=== PATIENT | female | born 1995 | race Caucasian/White ===

== ENCOUNTER 2017-10-31 22:28 | Emergency (ER) | payer SELFPAY ==
[2017-10-31 23:01] LABS: BASOPHILS 0.2 % (0-2); EOSINOPHILS 2.9 % (0-7); HEMATOCRIT 41.6 % (36.0-48.0); HEMOGLOBIN 13.3 g/dL (12-16); IMMATURE GRANULOCYTES 0.4 % (0-5); LYMPHOCYTES 27.4 % (15-50); MCH 27.2 pg (26.0-34.0); MCV 85.1 fL (80.0-100.0); MEAN PLATELET VOLUME 11.8 fL (7.4-10.4); NEUTROPHILS 62.1 % (40-80); PLATELET COUNT 279 10x3/uL (130-400); RBC 4.89 10x6/uL (4.00-5.40); RDW 13.5 % (11.5-14.5); WBC 8.9 10x3/uL (4.8-10.8)
[2017-10-31 23:10] LABS: APPEARANCE CLEAR (CLEAR); BILIRUBIN NEGATIVE (NEGATIVE); COLOR YELLOW (YELLOW); GLUCOSE NEGATIVE (NEGATIVE); KETONE NEGATIVE (NEGATIVE); NITRITE NEGATIVE (NEGATIVE); PROTEIN NEGATIVE (NEGATIVE); SPECIFIC GRAVITY 1.015 (1.005-1.020); UROBILINOGEN NORMAL (NORMAL)
[2017-10-31 23:11] LABS: HCG URINE NEGATIVE (NEGATIVE)
[2017-10-31 23:17] LABS: ALBUMIN 3.8 g/dL (3.4-5.0); ALKALINE PHOSPHATASE 95 U/L (46-116); ALT (SGPT) 30 U/L (10-68); AMYLASE - SERUM 43 U/L (25-115); BILIRUBIN - TOTAL 0.27 mg/dL (0.2-1.3); CALC OSMOLALITY 273 mosm/kg (275-300); CALCIUM 9.4 mg/dL (8.5-10.1); CARBON DIOXIDE 26.1 mmol/L (21.0-32.0); CHLORIDE - SERUM 102 mmol/L (98-107); CREATININE - SERUM 0.6 mg/dL (0.6-1.3); GLUCOSE 103 mg/dL (74-106); LIPASE 152 U/L (73-393); POTASSIUM - SERUM 4.1 mmol/L (3.5-5.1); PROTEIN - SERUM 7.6 g/dL (6.4-8.2); SODIUM 137 mmol/L (136-145); UREA NITROGEN 13 mg/dL (7-18); eGFR NON AFRICAN AMERICAN > 90 mL/min (90-120)
== END 2017-11-01 00:09 | disposition home or self-care (01) ==
LOC: D.ER 22:28
PROVIDERS: Family Medicine
DX: K29.00 Acute gastritis without bleeding (principal)

== ENCOUNTER 2017-11-13 16:21 | Emergency (ER) | payer MEDICAID ==
[2017-11-13 16:52] LABS: UDS - AMPHET NEGATIVE QUAL (NEGATIVE); UDS - BARB NEGATIVE QUAL (NEGATIVE); UDS - BENZO NEGATIVE QUAL (NEGATIVE); UDS - COCAINE NEGATIVE QUAL (NEGATIVE); UDS - OPIATE NEGATIVE QUAL (NEGATIVE); UDS - PCP NEGATIVE QUAL (NEGATIVE); UDS - THC NEGATIVE QUAL (NEGATIVE)
[2017-11-13 16:56] LABS: BASOPHILS 0.4 % (0-2); EOSINOPHILS 1.7 % (0-7); HEMATOCRIT 41.5 % (36.0-48.0); HEMOGLOBIN 13.4 g/dL (12-16); IMMATURE GRANULOCYTES 0.4 % (0-5); LYMPHOCYTES 22.2 % (15-50); MCH 27.3 pg (26.0-34.0); MCHC 32.3 g/dL (31.0-37.0); MCV 84.5 fL (80.0-100.0); MEAN PLATELET VOLUME 11.8 fL (7.4-10.4); MONOCYTES 9.8 % (2-11); NEUTROPHILS 65.5 % (40-80); PLATELET COUNT 293 10x3/uL (130-400); RBC 4.91 10x6/uL (4.00-5.40); RDW 13.5 % (11.5-14.5); WBC 8.2 10x3/uL (4.8-10.8)
[2017-11-13 17:18] LABS: ALBUMIN 4.2 g/dL (3.4-5.0); ALKALINE PHOSPHATASE 82 U/L (46-116); ALT (SGPT) 24 U/L (10-68); BILIRUBIN - TOTAL 0.33 mg/dL (0.2-1.3); CALC OSMOLALITY 277 mosm/kg (275-300); CALCIUM 9.3 mg/dL (8.5-10.1); CARBON DIOXIDE 23.6 mmol/L (21.0-32.0); CHLORIDE - SERUM 104 mmol/L (98-107); CREATININE - SERUM 0.7 mg/dL (0.6-1.3); GLUCOSE 93 mg/dL (74-106); POTASSIUM - SERUM 3.9 mmol/L (3.5-5.1); PROTEIN - SERUM 7.4 g/dL (6.4-8.2); SODIUM 139 mmol/L (136-145); UREA NITROGEN 13 mg/dL (7-18); eGFR NON AFRICAN AMERICAN > 90 mL/min (90-120)
[2017-11-13 17:33] LABS: APPEARANCE HAZY (CLEAR); BILIRUBIN NEGATIVE (NEGATIVE); COLOR YELLOW (YELLOW); GLUCOSE NEGATIVE (NEGATIVE); KETONE MODERATE mg/dL (NEGATIVE); NITRITE NEGATIVE (NEGATIVE); PROTEIN NEGATIVE (NEGATIVE); SPECIFIC GRAVITY 1.025 (1.005-1.020); UROBILINOGEN NORMAL (NORMAL)
[2017-11-13 17:36] LABS: EPITHELIAL CELLS 0-5 /hpf (0-5); RED CELLS - URINE >50 /hpf (0-5)
[2017-11-13 17:37] LABS: BACTERIA MODERATE /hpf (NONE SEEN)
== END 2017-11-13 21:34 | disposition home or self-care (01) ==
LOC: D.ER 16:21
PROVIDERS: Family Medicine
DX: F33.9 Major depressive disorder, recurrent, unspecified (principal); N39.0 Urinary tract infection, site not specified; I10 Essential (primary) hypertension

== ENCOUNTER 2017-12-04 19:16 | Emergency (ER) | payer MEDICAID ==
[2017-12-04 19:37] LABS: APPEARANCE CLEAR (CLEAR); BILIRUBIN NEGATIVE (NEGATIVE); COLOR YELLOW (YELLOW); GLUCOSE NEGATIVE (NEGATIVE); KETONE SMALL mg/dL (NEGATIVE); NITRITE NEGATIVE (NEGATIVE); PROTEIN NEGATIVE (NEGATIVE); UROBILINOGEN NORMAL (NORMAL)
[2017-12-04 19:38] LABS: WHITE CELLS - URINE 0-5 /hpf (0-5)
[2017-12-04 19:39] LABS: BACTERIA FEW /hpf (NONE SEEN); EPITHELIAL CELLS 0-5 /hpf (0-5); HCG URINE NEGATIVE (NEGATIVE); RED CELLS - URINE 0-5 /hpf (0-5)
[2017-12-04 19:45] LABS: UDS - AMPHET NEGATIVE QUAL (NEGATIVE); UDS - BARB NEGATIVE QUAL (NEGATIVE); UDS - BENZO NEGATIVE QUAL (NEGATIVE); UDS - COCAINE NEGATIVE QUAL (NEGATIVE); UDS - OPIATE NEGATIVE QUAL (NEGATIVE); UDS - PCP NEGATIVE QUAL (NEGATIVE); UDS - THC NEGATIVE QUAL (NEGATIVE)
[2017-12-04 20:12] LABS: BASOPHILS 0.5 % (0-2); EOSINOPHILS 2.3 % (0-7); HEMATOCRIT 41.9 % (36.0-48.0); HEMOGLOBIN 13.4 g/dL (12-16); IMMATURE GRANULOCYTES 0.8 % (0-5); LYMPHOCYTES 28.9 % (15-50); MCH 27.5 pg (26.0-34.0); MCV 85.9 fL (80.0-100.0); MEAN PLATELET VOLUME 11.9 fL (7.4-10.4); MONOCYTES 15.2 % (2-11); NEUTROPHILS 52.3 % (40-80); RBC 4.88 10x6/uL (4.00-5.40); RDW 13.5 % (11.5-14.5); WBC 6.1 10x3/uL (4.8-10.8)
[2017-12-04 20:15] LABS: PLATELET COUNT 213 10x3/uL (130-400)
[2017-12-04 20:42] LABS: ALKALINE PHOSPHATASE 60 U/L (46-116); ALT (SGPT) 18 U/L (10-68); CARBON DIOXIDE 22.9 mmol/L (21.0-32.0); CHLORIDE - SERUM 106 mmol/L (98-107); POTASSIUM - SERUM 3.6 mmol/L (3.5-5.1); PROTEIN - SERUM 6.9 g/dL (6.4-8.2); SODIUM 141 mmol/L (136-145)
[2017-12-04 21:03] LABS: ALBUMIN 3.6 g/dL (3.4-5.0); CALC OSMOLALITY 281 mosm/kg (275-300); CALCIUM 8.6 mg/dL (8.5-10.1); GLUCOSE 119 mg/dL (74-106); UREA NITROGEN 12 mg/dL (7-18)
[2017-12-04 21:12] LABS: CREATININE - SERUM 0.6 mg/dL (0.6-1.3); eGFR NON AFRICAN AMERICAN > 90 mL/min (90-120)
== END 2017-12-05 00:50 | disposition home or self-care (01) ==
LOC: D.ER 19:16
PROVIDERS: Emergency Medicine
DX: T14.91XA Suicide attempt, initial encounter (principal); X78.9XXA Intentional self-harm by unspecified sharp object, initial encounter; Y93.89 Activity, other specified; Y92.89 Other specified places as the place of occurrence of the external cause; F33.9 Major depressive disorder, recurrent, unspecified; I10 Essential (primary) hypertension; Z86.59 Personal history of other mental and behavioral disorders

== ENCOUNTER 2018-11-11 19:12 | Emergency (ER) | payer MEDICAID ==
[~2018-11-11] VITALS: Ht 154.9 cm; Wt 97.7 kg
[2018-11-11 19:22] VITALS: Ht 154.9 cm; Wt 97.7 kg
[2018-11-11] MEDS ORDERED: LISINOPRIL-HCT1 EAC7 PO (19:23)
[2018-11-11] MEDS ORDERED: TRAZODONE HCL150 MG PO (19:23)
[2018-11-11] MEDS ORDERED: ABILIFY2 MG PO (19:23)
[2018-11-11] MEDS ORDERED: DEPAKOTE ER250 MG PO (19:23)
[2018-11-11 20:45] LABS: BASOPHILS 0.3 % (0-2); EOSINOPHILS 2.9 % (0-7); HEMATOCRIT 45.3 % (36.0-48.0); HEMOGLOBIN 14.9 g/dL (12-16); IMMATURE GRANULOCYTES 0.8 % (0-5); LYMPHOCYTES 31.8 % (15-50); MCH 28.8 pg (26.0-34.0); MCHC 32.9 g/dL (31.0-37.0); MCV 87.6 fL (80.0-100.0); MEAN PLATELET VOLUME 11.8 fL (7.4-10.4); MONOCYTES 11.6 % (2-11); NEUTROPHILS 52.6 % (40-80); PLATELET COUNT 252 10x3/uL (130-400); RBC 5.17 10x6/uL (4.00-5.40); RDW 13.1 % (11.5-14.5)
[2018-11-11 21:09] LABS: ALBUMIN 3.7 g/dL (3.4-5.0); ALKALINE PHOSPHATASE 78 U/L (46-116); ALT (SGPT) 21 U/L (10-68); BILIRUBIN - TOTAL 0.09 mg/dL (0.2-1.3); CALC OSMOLALITY 279 mosm/kg (275-300); CALCIUM 8.7 mg/dL (8.5-10.1); CARBON DIOXIDE 25.8 mmol/L (21.0-32.0); CHLORIDE - SERUM 104 mmol/L (98-107); CREATININE - SERUM 0.7 mg/dL (0.6-1.3); GLUCOSE 89 mg/dL (74-106); POTASSIUM - SERUM 3.5 mmol/L (3.5-5.1); PROTEIN - SERUM 7.7 g/dL (6.4-8.2); SODIUM 139 mmol/L (136-145); UREA NITROGEN 20 mg/dL (7-18); eGFR NON AFRICAN AMERICAN > 90 mL/min (90-120)
[2018-11-11 21:21] LABS: TROPONIN-I < 0.017 ng/mL (0.000-0.060)
[2018-11-11 23:10] LABS: APPEARANCE HAZY (CLEAR); BILIRUBIN NEGATIVE (NEGATIVE); COLOR YELLOW (YELLOW); EPITHELIAL CELLS NSEEN /hpf (0-5); GLUCOSE NEGATIVE (NEGATIVE); KETONE NEGATIVE (NEGATIVE); NITRITE NEGATIVE (NEGATIVE); PROTEIN NEGATIVE (NEGATIVE); RED CELLS - URINE 0-5 /hpf (0-5); SPECIFIC GRAVITY 1.015 (1.005-1.020); UROBILINOGEN NORMAL (NORMAL); WHITE CELLS - URINE NSEEN /hpf (0-5)
[2018-11-11 23:11] LABS: AMORPHOUS SEDIMENT <1+ /lpf (NONE SEEN); BACTERIA NONE SEEN /hpf (NONE SEEN)
[2018-11-11 23:43] VITALS: BP 113/83
== END 2018-11-11 23:44 | disposition home or self-care (01) ==
LOC: D.ER 19:12
PROVIDERS: Family Medicine
DX: F43.9 Reaction to severe stress, unspecified (principal); R00.2 Palpitations

== ENCOUNTER 2018-12-13 17:15 | Emergency (ER) | payer MEDICAID ==
[~2018-12-13] VITALS: Ht 154.9 cm; Wt 95.5 kg
[~2018-12-13 17:15] MED LIST: ABILIFY2 MG PO; DEPAKOTE ER250 MG PO; LISINOPRIL-HCT1 EAC7 PO; TRAZODONE HCL150 MG PO
[2018-12-13 17:50] VITALS: Ht 154.9 cm; Wt 95.5 kg
[2018-12-13 18:22] LABS: BASOPHILS 0.7 % (0-2); EOSINOPHILS 3.7 % (0-7); HEMATOCRIT 42.1 % (36.0-48.0); HEMOGLOBIN 14.1 g/dL (12-16); IMMATURE GRANULOCYTES 0.7 % (0-5); LYMPHOCYTES 41.5 % (15-50); MCH 29.3 pg (26.0-34.0); MCHC 33.5 g/dL (31.0-37.0); MCV 87.5 fL (80.0-100.0); MEAN PLATELET VOLUME 11.5 fL (7.4-10.4); MONOCYTES 13.5 % (2-11); NEUTROPHILS 39.9 % (40-80); PLATELET COUNT 229 10x3/uL (130-400); RBC 4.81 10x6/uL (4.00-5.40); RDW 13.5 % (11.5-14.5); WBC 4.3 10x3/uL (4.8-10.8)
[2018-12-13 18:37] LABS: ALBUMIN 3.4 g/dL (3.4-5.0); ALKALINE PHOSPHATASE 71 U/L (46-116); ALT (SGPT) 26 U/L (10-68); CALC OSMOLALITY 284 mosm/kg (275-300); CALCIUM 7.9 mg/dL (8.5-10.1); CHLORIDE - SERUM 109 mmol/L (98-107); CREATININE - SERUM 0.6 mg/dL (0.6-1.3); GLUCOSE 88 mg/dL (74-106); POTASSIUM - SERUM 3.3 mmol/L (3.5-5.1); PROTEIN - SERUM 6.7 g/dL (6.4-8.2); SODIUM 143 mmol/L (136-145); UREA NITROGEN 15 mg/dL (7-18); eGFR NON AFRICAN AMERICAN > 90 mL/min (90-120)
[2018-12-13 19:23] LABS: HCG SERUM NEGATIVE (NEGATIVE)
[2018-12-13 22:09] LABS: APPEARANCE CLEAR (CLEAR); BILIRUBIN NEGATIVE (NEGATIVE); COLOR YELLOW (YELLOW); GLUCOSE NEGATIVE (NEGATIVE); KETONE NEGATIVE (NEGATIVE); NITRITE NEGATIVE (NEGATIVE); PROTEIN NEGATIVE (NEGATIVE); SPECIFIC GRAVITY 1.025 (1.005-1.020); UROBILINOGEN NORMAL (NORMAL)
[2018-12-13] MEDS ORDERED: ZOFRAN ODT4 MG/UDTAB PO (22:31)
[2018-12-13 22:44] VITALS: BP 128/87
== END 2018-12-13 22:44 | disposition home or self-care (01) ==
LOC: D.ER 17:15
PROVIDERS: Family Medicine
DX: K52.9 Noninfective gastroenteritis and colitis, unspecified (principal); I10 Essential (primary) hypertension

== ENCOUNTER 2019-06-02 15:05 | Inpatient (IN) | payer MEDICAID ==
[~2019-06-02] VITALS: Ht 154.9 cm; Wt 88.2 kg
[~2019-06-02 15:05] MED LIST changes: +ZOFRAN ODT4 MG/UDTAB PO
[2019-06-02 16:28] LABS: BASOPHILS 0.3 % (0-2); HEMATOCRIT 43.5 % (36.0-48.0); HEMOGLOBIN 14.2 g/dL (12-16); IMMATURE GRANULOCYTES 0.6 % (0-5); LYMPHOCYTES 26.7 % (15-50); MCH 29.4 pg (26.0-34.0); MCHC 32.6 g/dL (31.0-37.0); MCV 90.1 fL (80.0-100.0); MEAN PLATELET VOLUME 11.4 fL (7.4-10.4); MONOCYTES 8.7 % (2-11); NEUTROPHILS 58.7 % (40-80); PLATELET COUNT 228 10x3/uL (130-400); RBC 4.83 10x6/uL (4.00-5.40); RDW 13.1 % (11.5-14.5); WBC 6.4 10x3/uL (4.8-10.8)
[2019-06-02 16:41] LABS: ALBUMIN 3.6 g/dL (3.4-5.0); ALKALINE PHOSPHATASE 65 U/L (46-116); ALT (SGPT) 27 U/L (10-68); BILIRUBIN - TOTAL 0.31 mg/dL (0.2-1.3); CALC OSMOLALITY 281 mosm/kg (275-300); CALCIUM 8.4 mg/dL (8.5-10.1); CARBON DIOXIDE 26.9 mmol/L (21.0-32.0); CHLORIDE - SERUM 105 mmol/L (98-107); CREATININE - SERUM 0.9 mg/dL (0.6-1.3); GLUCOSE 82 mg/dL (74-106); MAGNESIUM - SERUM 2.2 mg/dL (1.8-2.4); POTASSIUM - SERUM 4.1 mmol/L (3.5-5.1); PROTEIN - SERUM 7.2 g/dL (6.4-8.2); SODIUM 141 mmol/L (136-145); UREA NITROGEN 19 mg/dL (7-18); eGFR NON AFRICAN AMERICAN 81 mL/min (90-120)
[2019-06-02 16:44] LABS: APPEARANCE CLEAR (CLEAR); COLOR YELLOW (YELLOW); NITRITE NEGATIVE (NEGATIVE); SPECIFIC GRAVITY 1.025 (1.005-1.020)
[2019-06-02 16:45] LABS: BILIRUBIN NEGATIVE (NEGATIVE); GLUCOSE NEGATIVE (NEGATIVE); KETONE SMALL mg/dL (NEGATIVE); PROTEIN TRACE mg/dL (NEGATIVE); UROBILINOGEN NORMAL (NORMAL)
--- NOTE | 2019-06-02 16:48 | NUR ---
POISON CONTROL CONTACTED RE: DEPAKOTE INGESTION. THEY SUGGEST CHECKING A DEPAKOTE LEVEL Q 4 HOURS UNTIL A DOWNWARD TREND IS NOTED. ALSO SUGGEST DRAWING AN ABG, LIVER ENZYMES, AMMONIA LEVEL, LACTIC ACID, CBC, CMP, RENAL FUNCTION, ASPIRIN LEVEL, ACETAMINOPHEN, UDS, ALCOHOL, EKG ( WATCHING FOR PROLONGED QT INTERVAL. ERP UPDATED.
[2019-06-02 16:52] LABS: UDS - AMPHET NEGATIVE QUAL (NEGATIVE); UDS - BARB NEGATIVE QUAL (NEGATIVE); UDS - BENZO NEGATIVE QUAL (NEGATIVE); UDS - COCAINE NEGATIVE QUAL (NEGATIVE); UDS - OPIATE NEGATIVE QUAL (NEGATIVE); UDS - PCP NEGATIVE QUAL (NEGATIVE); UDS - THC NEGATIVE QUAL (NEGATIVE)
[2019-06-02 17:06] LABS: HCG SERUM NEGATIVE (NEGATIVE)
--- NOTE | 2019-06-02 17:15 | NUR ---
UNABLE TO OBTAIN ASSESSMENT DUE TO PT BEING HYPERSOMIC AND LETHARGIC AT THIS TIME. ORDER IN COMPUTER FOR SITTER DUE TO PT OVERDOSING ON MEDICATIONS.
--- NOTE | 2019-06-02 17:25 | NUR ---
POISON CONTROL ALSO RECOMMENDS PT BE OBSERVED FOR 24 HOURS.
[2019-06-02 17:52] LABS: APTT 33.3 SECONDS (22.8-39.4); INR 1.14 (0.85-1.17); PROTIME 14.1 SECONDS (11.6-15.0)
--- NOTE | 2019-06-02 19:00 | NUR ---
ATTEMPTED NG TUBE PLACEMENT X 3. PT UNABLE TO TOLERATE. PT SLOWLY SIPPING AT CHARCOAL AT THIS TIME.
--- NOTE | 2019-06-02 19:37 | NUR ---
STOP TIME NORMAL SALINE BOLUS AT THIS TIME.
[2019-06-02 20:05] VITALS: BP 112/75
--- NOTE | 2019-06-02 20:05 | NUR ---
PT RECIEVED VIA STRETCHER, AROUSES TO STIMULI BUT DRIFTS OFF QUICKLY, ABLE TO ANSWER QUESTIONS, L PIV INTACT AND SL, R PIV INTACT WITH NS BOLUS INFUSING, VITALS STABLE, WILL CONT TO MONITOR
--- NOTE | 2019-06-02 20:10 | NUR ---
DR. SOTO PAGED RE: CRITICAL LABS
[2019-06-02 20:17] VITALS: BP 119/74; BMI 36.7
[2019-06-02 21:00] VITALS: BP 113/66
--- NOTE | 2019-06-02 21:00 | NUR ---
PT REMAINS ASLEEP WITH NO DISTRESS, VITALS STABLE
[2019-06-02 22:00] VITALS: BP 101/58
[2019-06-02 23:00] VITALS: BP 102/66
--- NOTE | 2019-06-02 23:15 | NUR ---
NO CHANGE IN STATUS, LABS DRAWN, REMAINS STABLE
[2019-06-03] VITALS (23 sets, daily range): BP systolic 96–144; BP diastolic 47–90; Ht 154.9 cm; Wt 88.2 kg
--- NOTE | 2019-06-03 01:00 | NUR ---
PT ASLEEP WITH NO DISTRESS NOTED, VITALS STABLE, SITTER PRESENT
--- NOTE | 2019-06-03 03:00 | NUR ---
PT AROUSES EASILY, A/OX4, NO C/O, SITTER PRESENT
[2019-06-03 04:52] LABS: ALKALINE PHOSPHATASE 57 U/L (46-116); ALT (SGPT) 19 U/L (10-68); BILIRUBIN - TOTAL 0.38 mg/dL (0.2-1.3); CALC OSMOLALITY 280 mosm/kg (275-300); CALCIUM 7.5 mg/dL (8.5-10.1); CARBON DIOXIDE 22.3 mmol/L (21.0-32.0); CHLORIDE - SERUM 107 mmol/L (98-107); CREATININE - SERUM 0.6 mg/dL (0.6-1.3); GLUCOSE 84 mg/dL (74-106); POTASSIUM - SERUM 3.8 mmol/L (3.5-5.1); PROTEIN - SERUM 6.2 g/dL (6.4-8.2); SODIUM 141 mmol/L (136-145); UREA NITROGEN 15 mg/dL (7-18); VALPROIC ACID (DEPAKOTE) 121.2 ug/mL (50.0-100.0); eGFR NON AFRICAN AMERICAN > 90 mL/min (90-120)
--- NOTE | 2019-06-03 05:00 | NUR ---
PT AROUSES EASILY WITH NO C/O, VITALS STABLE, WILL CONT TO MONITOR
--- NOTE | 2019-06-03 08:14 | NUR ---
0700 pt recieved arouses to voice alert and oriented, rfa piv ns infusing, lfa piv sl, barillas draining yellow urine, hr nsr on monitor, vss, alarms set, pt denies all needs, sitter in eyesight 0800 dr rader here, faxed jeb consult will continue to monitor
--- NOTE | 2019-06-03 10:16 | NUR ---
PT ASSISTED TO BEDPAN, ONE LOOSE BM DONE, PERICARE PROVIDED
--- NOTE | 2019-06-03 11:23 | NUR ---
REPORT GIVEN TO Mega DE JESUS RN
--- NOTE | 2019-06-03 14:50 | NUR ---
DR DAVENPORT CALLED GIVEN UPDATE REGAURDING PT RECENT LAB RESULTS AND VITALS STATED PT MEDICALLY CLEAR FOR PSYCH PLACEMENT AT THIS TIME.
[2019-06-03 15:15] LABS: CALC OSMOLALITY 277 mosm/kg (275-300); CARBON DIOXIDE 22.6 mmol/L (21.0-32.0); CHLORIDE - SERUM 106 mmol/L (98-107); CREATININE - SERUM 0.7 mg/dL (0.6-1.3); GLUCOSE 76 mg/dL (74-106); POTASSIUM - SERUM 3.5 mmol/L (3.5-5.1); SODIUM 139 mmol/L (136-145); UREA NITROGEN 15 mg/dL (7-18); VALPROIC ACID (DEPAKOTE) 61.7 ug/mL (50.0-100.0); eGFR NON AFRICAN AMERICAN > 90 mL/min (90-120)
--- NOTE | 2019-06-03 19:00 | NUR ---
PT ASSESSMENT COMPLETED AT THIS TIME. NO CHANGES NOTED FROM NURSE REPORT
--- NOTE | 2019-06-03 20:15 | NUR ---
TRANSFER CENTER CALLED AND ADVISED THAT PT WAS ACCEPTED AT [facility] BY DR. HERNANDEZ'S
--- NOTE | 2019-06-03 20:36 | NUR ---
REPORT CALLED TO FELICITA SCHAEFER, RN
--- NOTE | 2019-06-03 20:43 | MORECARE ---
CASE MANAGEMENT DISCHARGE SUMMARY PATIENT: ELA LAZO UNIT: [id number] ADM DATE: 06/02/19 AGE: 24 : [birth year] SEX: F ROOM/BED: D.2305 AUTHOR: PIPE DEL ROSARIO PHYSICIAN: REFERRING PHYSICIAN: ALKA DAVENPORT MD DATE OF SERVICE: 06/03/19 Discharge Plan Patient Name: [facility]LA LAZO [facility] [facility] 1995 Planned Disposition: Psych facility Anticipated Discharge Date: Discharge Date: Expected LOS: Initial Reviewer: [id number] Initial Review Date: 06/03/2019 Generated: 06/03/19 9:43 pm Comments DCP- Discharge Planning Updated by [id number]: Inga Moore on 06/03/19 7:[address] Patient Name: ELA LAZO Admission Status: ER Accout number: [id number] Admission Date: 06-02-2019 : 1995 Admission Diagnosis: Attending: ALKA DAVENPORT Current LOS: 1 Anticipated DC Date: Planned Disposition: Psych facility Primary Insurance: [employer] Discharge Planning Comments: CM notified that patient has been medically cleared for psych placement. Dr Ernandez has seen patient and recommends inpatient psych placement. Nursing called transfer center and CM faxed records to transfer center. CM received notice at 2039 that patient has been accepted to [facility]. Nursing setting up for ambulance transfer. CM will continue to follow and assist as needed with discharge planning / needs Physicist [employer]: Inga Moore Patient Name: ELA LAZO Page [id number] at 204 All edits/amendments must be made on the electronic document DICTATION DATE: 06/03/192042 ROUTER SETTER: NÉSTOR 06/03/192042 RPT#: [id number] DC DATE: STATUS: ADM IN [facility] [address] [place] [address] END OF REPORT
--- NOTE | 2019-06-03 20:56 | NUR ---
[facility] CALLED FOR TRANSPORT TO [facility] AT THIS TIME, ADVISED APPROXIMATLY 45 MIN
--- NOTE | 2019-06-03 21:20 | NUR ---
IV REMOVED FROM RIGHT F/A AND LEFT F/A, CATH INTACT, BLEEDINGCONTROLLED, SITE CLEAR, DRESSINGS APPLIED, NO BLEEDING NOTED
--- NOTE | 2019-06-03 21:43 | NUR ---
F/C REMOVED BY [facility]INES AT THIS TIME, PT JANUSZ WELL.
--- NOTE | 2019-06-03 23:00 | NUR ---
PT REASSESSMENT COMPLETED AT THIS TIME, NO CHANGES NOTED, WAITING ON EMS TRANSFER
--- NOTE | 2019-06-03 23:32 | NUR ---
EMS HERE, PT REPORT GIVEN TO CREW, PT AND HER BELONGINGS BAG WAS GIVEN TO CREW AND TRANSPORTED TO EXIT
--- NOTE | 2019-06-04 12:17 | CN ---
PATIENT NAME:ELA LAZO MEDICAL RECORD: [id number] : [birth year] LOCATION:CARINA.2305 ADMIT DATE: 06/02/19 ACCOUNT: [id number] CONSULTING PHYSICIAN: LIDIA NUNEZ MD REFERRING PHYSICIAN: ALKA DAVENPORT MD DATE OF CONSULTATION: 06/03/2019 IDENTIFYING DATA: The patient is 24 years old and she is admitted to the hospital on a voluntary basis secondary to an overdose. CHIEF COMPLAINT: Depression. HISTORY OF PRESENT ILLNESS: The patient tells me that she took an overdose of Depakote. What she says is inconsistent with the blood levels drawn. Nevertheless, she is insistent that this is what she did. 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 She has a history of such behavior and has been hospitalized at [facility] in the past. ASSESSMENT: Bipolar disorder, depressed. PLAN: At this time, I recommend the patient be transferred to acute inpatient psychiatric care once medically stable. I recommend that she continue to have a sitter. She is willing to go to the inpatient behavioral unit on a voluntary basis; however, if she changes her mind. I think that the circumstances merit an involuntary commitment. TRANSINT:[id number] Voice Confirmation ID: [id number] DOCUMENT ID: [id number] LIDIA NUNEZ MD at 1217 CC: [id number] DICTATION DATE: 06/03/19 1618 POUNCER: 06/03/19 1854 DIS IN 06/03/19 [address] [place] [address]
--- NOTE | 2019-06-06 09:19 | MORECARE ---
CASE MANAGEMENT DISCHARGE SUMMARY PATIENT: ELA LAZO UNIT: [id number] ADM DATE: 06/02/19 AGE: 24 : [birth year] SEX: F ROOM/BED: D.2305 AUTHOR: PIPE DEL ROSARIO PHYSICIAN: REFERRING PHYSICIAN: ALKA DAVENPORT MD DATE OF SERVICE: 06/06/19 Discharge Plan Patient Name: ELA LAZO [facility] [facility] 1995 Planned Disposition: Psych facility Anticipated Discharge Date: Discharge Date: 06/03/2019 Expected LOS: Initial Reviewer: [id number] Initial Review Date: 06/03/2019 Generated: 06/06/19 10:18 am Comments DCP- Discharge Planning Updated by [email or web address]: Inga Moore on 06/03/19 7:[address] Patient Name: ELA LAZO Admission Status: ER Accout number: [id number] Admission Date: 06-02-2019 : 1995 Admission Diagnosis: Attending: ALKA DAVENPORT Current LOS: 1 Anticipated DC Date: Planned Disposition: Psych facility Primary Insurance: [employer] Discharge Planning Comments: CM notified that patient has been medically cleared for psych placement. Dr Ernandez has seen patient and recommends inpatient psych placement. Nursing called transfer center and CM faxed records to transfer center. CM received notice at 2039 that patient has been accepted to [facility]. Nursing setting up for ambulance transfer. CM will continue to follow and assist as needed with discharge planning / needs Visiting Housekeeper: Inga Moore Last DP export: 06/03/19 7:43 p Patient Name: ELA LAZO Page [phone] at 0919 All edits/amendments must be made on the electronic document DICTATION DATE: 06/06/19917 BALANCE STAFF STAKER: NÉSTOR 06/06/19917 RPT#: [id number] DC DATE:06/03/19 STATUS: DIS IN [facility] [address] [place] [address] END OF REPORT
== END 2019-06-03 23:33 | disposition short-term general hospital (02) | DRG 918 ==
LOC: D.ER 15:05 → D.ICU 18:01
PROVIDERS: Emergency Medicine; ADMIT Family Medicine; ATTEND Family Medicine
DX: T42.6X2A Poisoning by other antiepileptic and sedative-hypnotic drugs, intentional self-harm, initial encounter (principal); F31.30 Bipolar disorder, current episode depressed, mild or moderate severity, unspecified; I10 Essential (primary) hypertension; R00.0 Tachycardia, unspecified; I95.2 Hypotension due to drugs